=== PATIENT | male | born 1955 | race Caucasian/White ===

== ENCOUNTER 2017-02-07 15:16 | Emergency (ER) | payer MEDICARE, OTHER ==
[~2017-02-07] VITALS: Ht 185.4 cm; Wt 74.2 kg
[2017-02-07] MEDS ORDERED: ASPI-496 PO (16:19)
[2017-02-07] MEDS ORDERED: CLON0.1T PO (16:19)
[2017-02-07] MEDS ORDERED: ATOR40TA78 PO (16:19)
[2017-02-07] MEDS ORDERED: LISI5TAB7 PO (16:19)
[2017-02-07] MEDS ORDERED: ONDANSETRON 2MG/ML, 2ML IVPush ONE (16:30)
[2017-02-07] MEDS ORDERED: SODIUM CHLORIDE 0.9% 1,000ML IVBOLUS ONE (16:30)
[2017-02-07] MEDS ORDERED: ONDANSETRON 2MG/ML, 2ML ONE (16:35)
[2017-02-07 16:50] LABS: BASOPHILS # (AUTO) 0.08 x10^3/uL (0-0.1); BASOPHILS % (AUTO) 1 % (0-1); EOSINOPHILS # (AUTO) 0.08 x10^3/uL (0-0.4); EOSINOPHILS % (AUTO) 1 % (1-7); LYMPHOCYTES % (AUTO) 16 % (22-44); MD NO; MEAN CORPUSCULAR HEMOGLOBIN 31.7 pg (27.5-34.5); MEAN CORPUSCULAR HGB CONC 33.9 g/dL (33.2-36.2); MEAN CORPUSCULAR VOLUME 93.3 fL (81-97); MEAN PLATELET VOLUME 8.3 fL (7.4-10.4); MONOCYTES % (AUTO) 8 % (2-9); NEUTROPHILS # (AUTO) 8.79 x10^3/uL (1.8-6.8); NEUTROPHILS % (AUTO) 75 % (42-75); PLATELET COUNT 461 x10^3/uL (130-400); RED BLOOD COUNT 5.41 x10^6/uL (4.38-5.82); RED CELL DISTRIBUTION WIDTH 13.7 % (9.4-14.8)
[2017-02-07 17:02] LABS: ALANINE AMINOTRANSFERASE 29 U/L (12-78); ALBUMIN 4.3 g/dL (3.4-5.0); ANION GAP 13 mmol/L (5-15); CALCIUM 9.5 mg/dL (8.5-10.1); CHLORIDE 97 mmol/L (98-107); CREATININE 2.21 mg/dL (0.7-1.3)
[2017-02-07 17:03] LABS: MICROSCOPIC INDICATED
[2017-02-07 17:05] LABS: ALKALINE PHOSPHATASE 113 U/L (45-117); BILIRUBIN,TOTAL 3.4 mg/dL (0.2-1.0); TOTAL PROTEIN 8.6 g/dL (6.4-8.2)
[2017-02-07] MEDS ORDERED: POTASSIUM CHLORIDE 20 MEQ TAB.ER.PRT PO ONE (17:30)
[2017-02-07] MEDS ORDERED: POTASSIUM CHLORIDE 20 MEQ TAB.ER.PRT ONE (17:31)
[2017-02-07 17:50] LABS: CULTURE INDICATED? NO
[2017-02-07 19:39] VITALS: BP 146/100
== END 2017-02-07 19:47 | disposition home or self-care (01) ==
LOC: ED 19:06
DX: K52.9 Noninfective gastroenteritis and colitis, unspecified (principal); I10 Essential (primary) hypertension; R17 Unspecified jaundice
CPT/HCPCS: 36415; 74020; 76700; 80053; 81001; 83690; 85025; 96361; 96374; 99285; J2405; J7030

== ENCOUNTER 2017-06-04 10:38 | Inpatient (IN) | payer OTHER ==
[~2017-06-04] VITALS: Ht 185.4 cm; Wt 79.5 kg
[~2017-06-04 10:38] MED LIST: ASPI-496 PO; ATOR40TA78 PO; CLON0.1T PO; LISI5TAB7 PO
[2017-06-04 11:24] LABS: BASOPHILS # (AUTO) 0.02 x10^3/uL (0-0.1); BASOPHILS % (AUTO) 0 % (0-1); EOSINOPHILS # (AUTO) 0.01 x10^3/uL (0-0.4); EOSINOPHILS % (AUTO) 0 % (1-7); LYMPHOCYTES # (AUTO) 0.74 x10^3/uL (1-3.4); LYMPHOCYTES % (AUTO) 5 % (22-44); MD NO; MEAN CORPUSCULAR HEMOGLOBIN 30.1 pg (27.5-34.5); MEAN CORPUSCULAR HGB CONC 33.3 g/dL (33.2-36.2); MEAN CORPUSCULAR VOLUME 90.6 fL (81-97); MEAN PLATELET VOLUME 8.9 fL (7.4-10.4); MONOCYTES # (AUTO) 0.61 x10^3/uL (0.2-0.8); MONOCYTES % (AUTO) 4 % (2-9); NEUTROPHILS # (AUTO) 13.92 x10^3/uL (1.8-6.8); NEUTROPHILS % (AUTO) 91 % (42-75); PLATELET COUNT 411 x10^3/uL (130-400); RED BLOOD COUNT 5.73 x10^6/uL (4.38-5.82); RED CELL DISTRIBUTION WIDTH 14.4 % (9.4-14.8)
[2017-06-04] MEDS ORDERED: MORPHINE SULFATE 4 MG/ML, 1ML IVPush PRN (11:30)
[2017-06-04] MEDS ORDERED: PROMETHAZINE 25 MG/ML, 1ML IM ONE (11:30)
[2017-06-04] MEDS ORDERED: SODIUM CHLORIDE FLUSH 10ML SYR IVF ONE (11:30)
[2017-06-04] MEDS ORDERED: SODIUM CHLORIDE 0.9% 1,000ML IVBOLUS ONE (11:30)
[2017-06-04 11:37] LABS: ALANINE AMINOTRANSFERASE 28 U/L (12-78); ALBUMIN 5.5 g/dL (3.4-5.0); ANION GAP 13 mmol/L (5-15); CALCIUM 10.3 mg/dL (8.5-10.1); CHLORIDE 104 mmol/L (98-107); CREATININE 1.68 mg/dL (0.7-1.3)
[2017-06-04 11:39] LABS: ALKALINE PHOSPHATASE 101 U/L (45-117); BILIRUBIN,TOTAL 2.9 mg/dL (0.2-1.0); TOTAL PROTEIN 9.6 g/dL (6.4-8.2)
[2017-06-04] MEDS ORDERED: PROMETHAZINE 25 MG/ML, 1ML ONE (11:47)
[2017-06-04] MEDS ORDERED: LORazepam 2 MG/ML, 1ML ONE (12:15)
[2017-06-04] MEDS ORDERED: LORazepam 2 MG/ML, 1ML IVPush ONE (13:00)
[2017-06-04] MEDS ORDERED: LORazepam 2 MG/ML, 1ML IVPush PRN (14:30)
[2017-06-04] MEDS ORDERED: ONDANSETRON 2MG/ML, 2ML IVPush PRN (14:30)
[2017-06-04] MEDS ORDERED: BISACODYL 10 MG SUPP PR PRN (14:30)
[2017-06-04 14:58] LABS: HEMOGLOBIN A1C 5.7 % (4.2-6.3)
[2017-06-04] MEDS ORDERED: PANT40TA5 PO (16:00)
[2017-06-04] MEDS ORDERED: ASPI-650 PO (16:00)
[2017-06-04 16:08] VITALS: BP 209/104
[2017-06-04] MEDS: HEPARIN 5,000 UNITS/ML, 1ML SQ SCH ×2 (16:11→23:26)
[2017-06-04] MEDS: ONDANSETRON ODT 4 MG PO PRN ×2 (16:11→20:38)
[2017-06-04] MEDS ORDERED: POTASSIUM PHOSPHATE 44 MEQ in SODIUM CHLORIDE 0.9% 500 ML IV ONE (16:30)
[2017-06-04] MEDS: LISINOPRIL 10 MG TABLET PO SCH (16:53)
[2017-06-04] MEDS: SODIUM CHLORIDE 0.9% 1,000 ML IV SCH ×2 (16:54→20:58)
[2017-06-04] MEDS ORDERED: PHARMACY MAY ADJ FOR RENAL FX MC PRN (17:00)
[2017-06-04 18:07] VITALS: BP 200/99
[2017-06-04 18:08] VITALS: BP 191/73
[2017-06-04] MEDS: hydrALAzine 20 MG/ML, 1ML IV PRN (18:17)
[2017-06-04 18:40] VITALS: BP 205/89
[2017-06-04 19:02] VITALS: BP 177/97
[2017-06-04] MEDS ORDERED: LISINOPRIL 20 MG TABLET PO SCH (21:00)
[2017-06-04 21:55] LABS: AMPHETAMINE SCREEN, URINE Negative (Negative); BARBITURATE SCREEN, URINE Negative (Negative); BENZODIAZEPINE SCREEN, URINE Negative (Negative); CANNABINOID SCREEN, URINE Positive (Negative); COCAINE SCREEN, URINE Negative (Negative); METHADONE SCREEN, URINE Negative (Negative); OPIATE SCREEN, URINE Negative (Negative)
[2017-06-05] MEDS ORDERED: PROMETHAZINE 25 MG/ML, 1ML IM ONE
[2017-06-05 01:00] VITALS: BP 171/96
[2017-06-05 05:11] LABS: BASOPHILS # (AUTO) 0.05 x10^3/uL (0-0.1); BASOPHILS % (AUTO) 0 % (0-1); EOSINOPHILS % (AUTO) 0 % (1-7); LYMPHOCYTES % (AUTO) 8 % (22-44); MD NO; MEAN CORPUSCULAR HEMOGLOBIN 30.6 pg (27.5-34.5); MEAN CORPUSCULAR HGB CONC 33.5 g/dL (33.2-36.2); MEAN CORPUSCULAR VOLUME 91.3 fL (81-97); MEAN PLATELET VOLUME 9.1 fL (7.4-10.4); MONOCYTES # (AUTO) 0.97 x10^3/uL (0.2-0.8); MONOCYTES % (AUTO) 7 % (2-9); NEUTROPHILS % (AUTO) 84 % (42-75); PLATELET COUNT 372 x10^3/uL (130-400); RED BLOOD COUNT 5.02 x10^6/uL (4.38-5.82); RED CELL DISTRIBUTION WIDTH 14.5 % (9.4-14.8)
[2017-06-05 05:24] LABS: CHLORIDE 107 mmol/L (98-107)
[2017-06-05 05:29] LABS: MICROSCOPIC NOT IND
[2017-06-05 05:30] LABS: ALANINE AMINOTRANSFERASE 23 U/L (12-78); ALBUMIN 4.1 g/dL (3.4-5.0); ALKALINE PHOSPHATASE 81 U/L (45-117); ANION GAP 12 mmol/L (5-15); BILIRUBIN,TOTAL 2.6 mg/dL (0.2-1.0); CALCIUM 8.6 mg/dL (8.5-10.1); CREATININE 1.17 mg/dL (0.7-1.3); TOTAL PROTEIN 7.6 g/dL (6.4-8.2)
[2017-06-05 05:33] LABS: CULTURE INDICATED? NO
[2017-06-05 06:55] VITALS: BP 159/87
[2017-06-05] MEDS: SODIUM CHLORIDE 0.9% 1,000 ML IV SCH ×2 (07:30→22:11)
[2017-06-05] MEDS ORDERED: PANTOPRAZOLE 40 MG IV IVPush SCH (09:00)
[2017-06-05] MEDS: ASPIRIN 325 MG TABLET EC PO SCH (09:18)
[2017-06-05] MEDS: HEPARIN 5,000 UNITS/ML, 1ML SQ SCH ×2 (09:18→17:29)
[2017-06-05] MEDS: LISINOPRIL 10 MG TABLET PO SCH ×2 (09:18→22:11)
[2017-06-05] MEDS: ONDANSETRON ODT 4 MG PO PRN ×2 (09:18→18:08)
[2017-06-05] MEDS: SENNA/DOCUSATE TABLET PO SCH (09:18)
[2017-06-05 12:42] VITALS: BP 147/71
[2017-06-05 18:36] VITALS: BP_SYST 192; BP_SYST 199; BP_DIAS 106; BP_DIAS 108
[2017-06-05] MEDS: hydrALAzine 20 MG/ML, 1ML IV PRN (19:37)
[2017-06-05] MEDS: MORPHINE SULFATE 4 MG/ML, 1ML IVPush PRN (19:52)
[2017-06-05 20:30] VITALS: BP 177/96
[2017-06-06 00:22] VITALS: BP 165/104
[2017-06-06] MEDS: HEPARIN 5,000 UNITS/ML, 1ML SQ SCH ×3 (00:29→16:11)
[2017-06-06] MEDS: MORPHINE SULFATE 4 MG/ML, 1ML IVPush PRN ×2 (00:40→20:31)
[2017-06-06 05:03] LABS: ALBUMIN 3.7 g/dL (3.4-5.0); ANION GAP 10 mmol/L (5-15); CALCIUM 8.5 mg/dL (8.5-10.1); CHLORIDE 107 mmol/L (98-107)
[2017-06-06 05:04] LABS: BASOPHILS # (AUTO) 0.07 x10^3/uL (0-0.1); BASOPHILS % (AUTO) 1 % (0-1); EOSINOPHILS # (AUTO) 0.01 x10^3/uL (0-0.4); EOSINOPHILS % (AUTO) 0 % (1-7); LYMPHOCYTES # (AUTO) 1.12 x10^3/uL (1-3.4); LYMPHOCYTES % (AUTO) 12 % (22-44); MD NO; MEAN CORPUSCULAR HEMOGLOBIN 30.3 pg (27.5-34.5); MEAN CORPUSCULAR HGB CONC 33.3 g/dL (33.2-36.2); MEAN CORPUSCULAR VOLUME 91.2 fL (81-97); MEAN PLATELET VOLUME 9.2 fL (7.4-10.4); MONOCYTES # (AUTO) 0.74 x10^3/uL (0.2-0.8); MONOCYTES % (AUTO) 8 % (2-9); NEUTROPHILS # (AUTO) 7.35 x10^3/uL (1.8-6.8); NEUTROPHILS % (AUTO) 79 % (42-75); PLATELET COUNT 306 x10^3/uL (130-400); RED BLOOD COUNT 4.94 x10^6/uL (4.38-5.82); RED CELL DISTRIBUTION WIDTH 14.1 % (9.4-14.8)
[2017-06-06 05:08] LABS: ALANINE AMINOTRANSFERASE 20 U/L (12-78); ALKALINE PHOSPHATASE 72 U/L (45-117); BILIRUBIN,TOTAL 2.3 mg/dL (0.2-1.0); CREATININE 1.05 mg/dL (0.7-1.3)
[2017-06-06] MEDS: SODIUM CHLORIDE 0.9% 1,000 ML IV SCH (06:22)
[2017-06-06 07:49] VITALS: BP 111/76
[2017-06-06] MEDS: ASPIRIN 325 MG TABLET EC PO SCH (08:12)
[2017-06-06] MEDS: ONDANSETRON ODT 4 MG PO PRN ×3 (08:12→20:31)
[2017-06-06] MEDS: LISINOPRIL 10 MG TABLET PO SCH ×2 (08:13→20:13)
[2017-06-06] MEDS: SENNA/DOCUSATE TABLET PO SCH (08:17)
[2017-06-06] MEDS: PANTOPROZOLE 40MG TABLET PO SCH (08:17)
[2017-06-06] MEDS ORDERED: PROMETHAZINE 12.5 MG SUPP PR PRN (10:00)
[2017-06-06 14:05] VITALS: BP 119/79
[2017-06-06] MEDS ORDERED: NS + 20MEQ KCL 1,000 ML IV SCH (14:18)
[2017-06-06 19:01] VITALS: BP 194/105
[2017-06-06] MEDS: hydrALAzine 20 MG/ML, 1ML IV PRN (20:14)
[2017-06-06] MEDS: NS + 20MEQ KCL 1,000 ML IV SCH (20:19)
[2017-06-06 22:28] VITALS: BP 156/94
[2017-06-07] MEDS: HEPARIN 5,000 UNITS/ML, 1ML SQ SCH ×2 (01:16→07:59)
[2017-06-07 01:51] VITALS: BP 115/70
[2017-06-07] MEDS: NS + 20MEQ KCL 1,000 ML IV SCH ×2 (04:33→12:00)
[2017-06-07 06:47] LABS: ALANINE AMINOTRANSFERASE 17 U/L (12-78); ALBUMIN 3.2 g/dL (3.4-5.0); ANION GAP 9 mmol/L (5-15); CALCIUM 7.6 mg/dL (8.5-10.1); CHLORIDE 108 mmol/L (98-107)
[2017-06-07 06:49] LABS: ALKALINE PHOSPHATASE 66 U/L (45-117); BILIRUBIN,TOTAL 1.9 mg/dL (0.2-1.0); TOTAL PROTEIN 6.1 g/dL (6.4-8.2)
[2017-06-07 07:20] VITALS: BP 117/78
[2017-06-07] MEDS: PANTOPROZOLE 40MG TABLET PO SCH (07:58)
[2017-06-07] MEDS: LISINOPRIL 10 MG TABLET PO SCH (07:58)
[2017-06-07] MEDS: SENNA/DOCUSATE TABLET PO SCH (07:58)
[2017-06-07] MEDS: ASPIRIN 325 MG TABLET EC PO SCH (07:58)
== END 2017-06-07 14:29 | disposition home or self-care (01) | DRG 102 ==
LOC: ED 13:00 → EDIP 13:01 → ED 13:17 → 3NE 15:40 → 4EST 18:51
PROVIDERS: ADMIT Internal Medicine Pulmonary Disease; ATTEND Internal Medicine Pulmonary Disease
DX: G43.A0 Cyclical vomiting, in migraine, not intractable (principal); N17.0 Acute kidney failure with tubular necrosis; D75.1 Secondary polycythemia; E83.39 Other disorders of phosphorus metabolism; E83.52 Hypercalcemia; E86.0 Dehydration; F12.188 Cannabis abuse with other cannabis-induced disorder; K59.00 Constipation, unspecified; D47.3 Essential (hemorrhagic) thrombocythemia; E74.39 Other disorders of intestinal carbohydrate absorption; R33.9 Retention of urine, unspecified; E78.5 Hyperlipidemia, unspecified; E87.6 Hypokalemia; I10 Essential (primary) hypertension; Z80.1 Family history of malignant neoplasm of trachea, bronchus and lung; Z82.49 Family history of ischemic heart disease and other diseases of the circulatory system; Z83.3 Family history of diabetes mellitus; Z86.73 Personal history of transient ischemic attack (TIA), and cerebral infarction without residual deficits; T40.7X5A Adverse effect of cannabis (derivatives), initial encounter
CPT/HCPCS: 36415; 74021; 76700; 80053; 80307; 81003; 83036; 83690; 83735; 84100; 85025; 93005; 96361; 96372; 96374; J1644; J2550; J3480; Q0162; C9113; J0360; J2060; J7030; J7040

== ENCOUNTER 2017-12-09 10:42 | Inpatient (IN) | payer OTHER ==
[~2017-12-09] VITALS: Ht 185.4 cm; Wt 74.0 kg
[~2017-12-09 10:42] MED LIST changes: +ASPI-650 PO; +PANT40TA5 PO
[2017-12-09] MEDS ORDERED: MORPHINE SULFATE 4 MG/ML, 1ML ONE (11:43)
[2017-12-09] MEDS ORDERED: ONDANSETRON 2MG/ML, 2ML ONE (11:43)
[2017-12-09] MEDS ORDERED: ONDANSETRON 2MG/ML, 2ML IVPush ONE ×2 (12:00→14:30)
[2017-12-09] MEDS ORDERED: SODIUM CHLORIDE FLUSH 10ML SYR IVF ONE (12:00)
[2017-12-09] MEDS ORDERED: SODIUM CHLORIDE 0.9% 1,000ML IVBOLUS ONE (12:00)
[2017-12-09] MEDS ORDERED: MORPHINE SULFATE 4 MG/ML, 1ML IVPush PRN (12:00)
[2017-12-09 12:04] LABS: BASOPHILS # (AUTO) 0.01 x10^3/uL (0-0.1); BASOPHILS % (AUTO) 0 % (0-1); EOSINOPHILS # (AUTO) 0.03 x10^3/uL (0-0.4); EOSINOPHILS % (AUTO) 0 % (1-7); LYMPHOCYTES # (AUTO) 1.82 x10^3/uL (1-3.4); LYMPHOCYTES % (AUTO) 15 % (22-44); MD NO; MEAN CORPUSCULAR HEMOGLOBIN 30.7 pg (27.5-34.5); MEAN CORPUSCULAR HGB CONC 33.8 g/dL (33.2-36.2); MEAN CORPUSCULAR VOLUME 90.8 fL (81-97); MEAN PLATELET VOLUME 9.2 fL (7.4-10.4); MONOCYTES # (AUTO) 1.01 x10^3/uL (0.2-0.8); MONOCYTES % (AUTO) 8 % (2-9); NEUTROPHILS # (AUTO) 9.35 x10^3/uL (1.8-6.8); NEUTROPHILS % (AUTO) 77 % (42-75); PLATELET COUNT 455 x10^3/uL (130-400); RED BLOOD COUNT 6.12 x10^6/uL (4.38-5.82); RED CELL DISTRIBUTION WIDTH 13.3 % (9.4-14.8)
[2017-12-09 12:12] LABS: ANION GAP 17 mmol/L (5-15); CALCIUM 9.5 mg/dL (8.5-10.1); CHLORIDE 91 mmol/L (98-107)
[2017-12-09 12:15] LABS: ALANINE AMINOTRANSFERASE 29 U/L (12-78); ALKALINE PHOSPHATASE 112 U/L (45-117); CREATININE 3.75 mg/dL (0.7-1.3); TOTAL PROTEIN 9.6 g/dL (6.4-8.2)
[2017-12-09] MEDS ORDERED: POTASSIUM CHLORIDE 20 MEQ TAB.ER.PRT ONE (13:54)
[2017-12-09] MEDS ORDERED: POTASSIUM CHLORIDE 20 MEQ TAB.ER.PRT PO ONE (14:00)
[2017-12-09 14:21] VITALS: BP 171/101
[2017-12-09] MEDS ORDERED: LORazepam 2 MG/ML, 1ML IVPush PRN (16:00)
[2017-12-09] MEDS ORDERED: PROMETHAZINE 25 MG/ML, 1ML IM PRN (16:00)
[2017-12-09] MEDS ORDERED: LABETALOL 5MG/ML, 20ML IVPush PRN (16:00)
[2017-12-09] MEDS: HEPARIN 5,000 UNITS/ML, 1ML SQ SCH (16:00)
[2017-12-09] MEDS: NS + 40MEQ KCL 1,000 ML IV SCH ×2 (16:42→22:43)
[2017-12-09] MEDS: morphine SULFATE 10 MG/ML, 1ML IVPush PRN ×2 (16:50→19:52)
[2017-12-09 19:35] VITALS: BP 179/112
[2017-12-09] MEDS: ONDANSETRON 2MG/ML, 2ML IVPush PRN (19:52)
[2017-12-09 20:40] VITALS: BP 146/72
[2017-12-10 00:18] VITALS: BP 137/71
[2017-12-10] MEDS: morphine SULFATE 10 MG/ML, 1ML IVPush PRN ×4 (01:48→12:57)
[2017-12-10] MEDS: HEPARIN 5,000 UNITS/ML, 1ML SQ SCH ×3 (03:33→20:07)
[2017-12-10] MEDS: ONDANSETRON 2MG/ML, 2ML IVPush PRN (04:10)
[2017-12-10 05:03] LABS: BASOPHILS # (AUTO) 0.05 x10^3/uL (0-0.1); BASOPHILS % (AUTO) 1 % (0-1); EOSINOPHILS # (AUTO) 0.05 x10^3/uL (0-0.4); EOSINOPHILS % (AUTO) 1 % (1-7); LYMPHOCYTES # (AUTO) 1.63 x10^3/uL (1-3.4); LYMPHOCYTES % (AUTO) 18 % (22-44); MD NO; MEAN CORPUSCULAR HEMOGLOBIN 30.9 pg (27.5-34.5); MEAN CORPUSCULAR HGB CONC 33.9 g/dL (33.2-36.2); MEAN CORPUSCULAR VOLUME 91.1 fL (81-97); MEAN PLATELET VOLUME 8.9 fL (7.4-10.4); MONOCYTES % (AUTO) 11 % (2-9); NEUTROPHILS # (AUTO) 6.27 x10^3/uL (1.8-6.8); NEUTROPHILS % (AUTO) 70 % (42-75); PLATELET COUNT 317 x10^3/uL (130-400); RED BLOOD COUNT 5.36 x10^6/uL (4.38-5.82); RED CELL DISTRIBUTION WIDTH 13.6 % (9.4-14.8)
[2017-12-10 05:12] LABS: ALBUMIN 3.8 g/dL (3.4-5.0); ANION GAP 9 mmol/L (5-15); CALCIUM 8.4 mg/dL (8.5-10.1); CHLORIDE 108 mmol/L (98-107)
[2017-12-10 05:17] LABS: ALANINE AMINOTRANSFERASE 23 U/L (12-78); ALKALINE PHOSPHATASE 83 U/L (45-117); BILIRUBIN,TOTAL 3.1 mg/dL (0.2-1.0); TOTAL PROTEIN 7.2 g/dL (6.4-8.2)
[2017-12-10] MEDS: NS + 40MEQ KCL 1,000 ML IV SCH (05:38)
[2017-12-10 07:10] VITALS: BP 139/86
[2017-12-10] MEDS: PANTOPRAZOLE 40 MG IV IVPush SCH (08:00)
[2017-12-10 13:34] VITALS: BP 151/89
[2017-12-10] MEDS: D5%-0.45% NACL 1,000 ML IV SCH (16:27)
[2017-12-10 19:19] VITALS: BP 153/87
[2017-12-11] MEDS: D5%-0.45% NACL 1,000 ML IV SCH ×2 (00:07→08:04)
[2017-12-11 03:54] VITALS: BP 129/71
[2017-12-11] MEDS: HEPARIN 5,000 UNITS/ML, 1ML SQ SCH (04:41)
[2017-12-11 05:35] LABS: ANION GAP 8 mmol/L (5-15); BASOPHILS # (AUTO) 0.04 x10^3/uL (0-0.1); BASOPHILS % (AUTO) 1 % (0-1); CALCIUM 7.7 mg/dL (8.5-10.1); CHLORIDE 110 mmol/L (98-107); EOSINOPHILS # (AUTO) 0.17 x10^3/uL (0-0.4); EOSINOPHILS % (AUTO) 3 % (1-7); LYMPHOCYTES # (AUTO) 1.32 x10^3/uL (1-3.4); LYMPHOCYTES % (AUTO) 25 % (22-44); MD NO; MEAN CORPUSCULAR HEMOGLOBIN 30.6 pg (27.5-34.5); MEAN CORPUSCULAR HGB CONC 33.6 g/dL (33.2-36.2); MEAN CORPUSCULAR VOLUME 90.9 fL (81-97); MEAN PLATELET VOLUME 8.5 fL (7.4-10.4); MONOCYTES # (AUTO) 0.48 x10^3/uL (0.2-0.8); MONOCYTES % (AUTO) 9 % (2-9); NEUTROPHILS # (AUTO) 3.35 x10^3/uL (1.8-6.8); NEUTROPHILS % (AUTO) 63 % (42-75); PLATELET COUNT 278 x10^3/uL (130-400); RED BLOOD COUNT 4.55 x10^6/uL (4.38-5.82); RED CELL DISTRIBUTION WIDTH 13.7 % (9.4-14.8)
[2017-12-11 05:37] LABS: CREATININE 1.11 mg/dL (0.7-1.3)
[2017-12-11 07:15] VITALS: BP 111/66
[2017-12-11] MEDS: PANTOPRAZOLE 40 MG IV IVPush SCH (08:04)
[2017-12-11 08:30] VITALS: BP 147/81
[2017-12-11] MEDS ORDERED: TRAM50TA2 PO (09:54)
== END 2017-12-11 11:43 | disposition home or self-care (01) | DRG 391 ==
LOC: ED 13:22 → EDIP 13:32 → 3NE 14:35
PROVIDERS: ADMIT Family Medicine; ATTEND Family Medicine
DX: K52.9 Noninfective gastroenteritis and colitis, unspecified (principal); N17.0 Acute kidney failure with tubular necrosis; E87.1 Hypo-osmolality and hyponatremia; D68.9 Coagulation defect, unspecified; E80.4 Gilbert syndrome; E86.0 Dehydration; E87.6 Hypokalemia; K44.9 Diaphragmatic hernia without obstruction or gangrene; N20.0 Calculus of kidney; F12.90 Cannabis use, unspecified, uncomplicated; D47.3 Essential (hemorrhagic) thrombocythemia; I10 Essential (primary) hypertension; E78.5 Hyperlipidemia, unspecified; Z86.73 Personal history of transient ischemic attack (TIA), and cerebral infarction without residual deficits; Z82.49 Family history of ischemic heart disease and other diseases of the circulatory system; Z87.442 Personal history of urinary calculi; Z83.3 Family history of diabetes mellitus
CPT/HCPCS: 36415; 74183; 76700; 76770; 80048; 80053; 83605; 83690; 83735; 84100; 85025; 93005; 96361; 96374; 96375; G0378; J2405; C9113; J2270; J3480; J7030

== ENCOUNTER 2020-08-03 11:39 | Inpatient (IN) | payer OTHER ==
[~2020-08-03] VITALS: Ht 185.4 cm; Wt 80.0 kg
[~2020-08-03 11:39] MED LIST changes: +ASPI-1026 PO; -ASPI-650 PO; -CLON0.1T PO; +CLON0.1T22 PO; -PANT40TA5 PO; +PANT40TA6 PO; +TRAM50TA2 PO
--- NOTE | 2020-08-03 11:39 | NUR ---
PATIENT NIL X1.
--- NOTE | 2020-08-03 12:34 | NUR ---
PT TO ROOM 24 W/ C/O ABD PAIN THROUGHOUT AND RLQ ABD PAIN. PT W/ N/V AND CURRENTLY DRY HEAVES. PT STATES STARTED YESTERDAY. DENIES DIARRHEA. PT RESTING ON GURNEY. STATES ABD PAIN THROUGHOUT ON PALPATION CONCENTRATED ON RLQ. PT RESTING ON GURNEY. MONITORS APPLIED. WARM BLANKET PROVIDED. CALL LIGHT IN REACH. PIV INITIATED.
[2020-08-03] MEDS ORDERED: ONDANSETRON 2MG/ML, 2ML IVPush ONE (13:00)
[2020-08-03] MEDS ORDERED: HYDROmorphone 1 MG/ML, 1ML INJ IV ONE (13:00)
[2020-08-03] MEDS ORDERED: SODIUM CHLORIDE 0.9% 1,000ML IVBOLUS ONE (13:00)
[2020-08-03] MEDS ORDERED: SODIUM CHLORIDE FLUSH 10ML SYR IVF ONE (13:00)
[2020-08-03] MEDS ORDERED: ONDANSETRON 2MG/ML, 2ML ONE ×2 (13:01→18:13)
[2020-08-03] MEDS ORDERED: HYDROmorphone 1 MG/ML, 1ML INJ ONE (13:01)
[2020-08-03 13:17] LABS: BASOPHILS % (AUTO) 1 % (0-1); EOSINOPHILS % (AUTO) 0 % (1-7); LYMPHOCYTES % (AUTO) 7 % (22-44); MEAN CORPUSCULAR HEMOGLOBIN 31.5 pg (27.5-34.5); MEAN CORPUSCULAR HGB CONC 33.3 g/dL (33.2-36.2); MEAN PLATELET VOLUME 8.4 fL (7.4-10.4); MONOCYTES % (AUTO) 6 % (2-9); NEUTROPHILS % (AUTO) 86 % (42-75); PLATELET COUNT 388 x10^3/uL (130-400); RED CELL DISTRIBUTION WIDTH 14.4 % (9.4-14.8)
[2020-08-03 13:21] LABS: MICROSCOPIC INDICATED
[2020-08-03 13:28] LABS: ALBUMIN 4.2 g/dL (3.4-5.0); ANION GAP 9 mmol/L (5-15); CALCIUM 8.9 mg/dL (8.5-10.1); CHLORIDE 105 mmol/L (98-107)
[2020-08-03 13:32] LABS: ALANINE AMINOTRANSFERASE 30 U/L (12-78); ALKALINE PHOSPHATASE 115 U/L (45-117); BILIRUBIN,TOTAL 3.2 mg/dL (0.2-1.0); CREATININE 1.56 mg/dL (0.7-1.3)
--- NOTE | 2020-08-03 13:50 | NUR ---
PT RESTING ON GURNEY. NADN. OCONNOR.
--- NOTE | 2020-08-03 14:20 | NUR ---
CT DELAY- CODE NEURO JUST CALLED AND ONE ROOM DOING BIOPSY
--- NOTE | 2020-08-03 14:46 | NUR ---
PT TAKEN TO CT IN STABLE CONDITION. NADN. VSS.
[2020-08-03] MEDS ORDERED: OMNIPAQUE 350 MG/ML, 100ML BOTTLE ONE (14:55)
--- NOTE | 2020-08-03 15:53 | NUR ---
BREAK RN: PT CALMLY SLEEPING ON GURNEY, NAD WITH EQUAL CHEST RISE/FALL, NO NEEDS AT THIS TIME, AT BS, CALL LIGHT WITHIN REACH.
[2020-08-03] MEDS ORDERED: ENALAPRILAT 1.25 MG/ML, 2ML IV ONE (16:30)
[2020-08-03] MEDS ORDERED: ENALAPRILAT 1.25 MG/ML, 1ML ONE (16:33)
--- NOTE | 2020-08-03 16:38 | NUR ---
PT AND FAMILY AWARE OF POC FOR ADMISSION AND ARE AGREEABLE.
--- NOTE | 2020-08-03 17:30 | NUR ---
PT RESTING ON GURNEY. NADN. OCONNOR.
[2020-08-03] MEDS: ONDANSETRON 2MG/ML, 2ML IVPush PRN (18:00)
--- NOTE | 2020-08-03 18:27 | NUR ---
[facility] STUDENT AT BEDSIDE FOR ADMISSION EVAL.
[2020-08-03] MEDS ORDERED: BISACODYL 10 MG SUPP PR PRN (19:00)
[2020-08-03] MEDS ORDERED: ACETAMINOPHEN 325 MG TABLET PO PRN (19:00)
[2020-08-03] MEDS ORDERED: morphine SULFATE 10 MG/ML, 1ML IVPush PRN (19:00)
[2020-08-03] MEDS ORDERED: POLYETHYLENE GLYCOL 17 GM PACKET PO PRN (19:00)
--- NOTE | 2020-08-03 19:25 | NUR ---
PT RESTING ON GURNEY. NADN. OCONNOR.
[2020-08-03 20:24] VITALS: BP 172/92
[2020-08-03] MEDS: ATORVASTATIN 40 MG TABLET PO SCH (20:30)
[2020-08-03] MEDS: HEPARIN 5,000 UNITS/ML, 1ML SQ SCH (20:30)
[2020-08-03] MEDS: SODIUM CHLORIDE 0.9% 1,000 ML IV SCH (20:31)
[2020-08-03] MEDS: hydrALAzine 20 MG/ML, 1ML IV PRN (23:27)
[2020-08-04] VITALS (7 sets, daily range): BP systolic 155–193; BP diastolic 87–104
[2020-08-04] MEDS ORDERED: ENALAPRILAT 1.25 MG/ML, 2ML IV PRN (01:30)
[2020-08-04] MEDS ORDERED: ENALAPRILAT 1.25 MG/ML, 1ML ONE ×2 (01:31→01:36)
[2020-08-04] MEDS: ONDANSETRON 2MG/ML, 2ML IVPush PRN (01:52)
[2020-08-04] MEDS: HEPARIN 5,000 UNITS/ML, 1ML SQ SCH ×3 (03:00→21:08)
[2020-08-04 04:35] LABS: BASOPHILS % (AUTO) 1 % (0-1); EOSINOPHILS % (AUTO) 0 % (1-7); LYMPHOCYTES % (AUTO) 12 % (22-44); MEAN CORPUSCULAR HEMOGLOBIN 31.6 pg (27.5-34.5); MEAN CORPUSCULAR HGB CONC 33.7 g/dL (33.2-36.2); MEAN PLATELET VOLUME 8.5 fL (7.4-10.4); MONOCYTES % (AUTO) 9 % (2-9); NEUTROPHILS % (AUTO) 78 % (42-75); PLATELET COUNT 321 x10^3/uL (130-400); RED BLOOD COUNT 5.13 x10^6/uL (4.38-5.82); RED CELL DISTRIBUTION WIDTH 14.4 % (9.4-14.8)
[2020-08-04 04:47] LABS: ANION GAP 7 mmol/L (5-15); CALCIUM 8.1 mg/dL (8.5-10.1); CHLORIDE 107 mmol/L (98-107)
[2020-08-04 04:49] LABS: CREATININE 1.11 mg/dL (0.7-1.3)
[2020-08-04] MEDS: hydrALAzine 20 MG/ML, 1ML IV PRN (06:30)
[2020-08-04] MEDS: SODIUM CHLORIDE 0.9% 1,000 ML IV SCH (06:30)
[2020-08-04] MEDS: ASPIRIN 325 MG TABLET EC PO SCH (08:30)
[2020-08-04] MEDS: PANTOPRAZOLE 40MG TABLET PO SCH (08:30)
[2020-08-04] MEDS: SENNA/DOCUSATE TABLET PO SCH (08:31)
[2020-08-04] MEDS: AMLODIPINE 5 MG TABLET PO SCH (16:20)
[2020-08-04] MEDS ORDERED: POTASSIUM CHLORIDE 40 MEQ in SODIUM CHLORIDE 0.9% 500 ML IV ONE (16:30)
[2020-08-04] MEDS ORDERED: SODIUM CHLORIDE 0.9% 1,000 ML IV SCH (19:00)
[2020-08-04] MEDS: CIPROFLOXACIN 250 MG TABLET PO SCH (21:00)
[2020-08-04] MEDS ORDERED: CIPROFLOXACIN 500 MG TABLET ONE (21:01)
[2020-08-04] MEDS: ATORVASTATIN 40 MG TABLET PO SCH (21:06)
[2020-08-05 01:37] VITALS: BP 111/72
[2020-08-05] MEDS: HEPARIN 5,000 UNITS/ML, 1ML SQ SCH ×3 (03:53→18:47)
[2020-08-05 05:59] LABS: BASOPHILS % (AUTO) 1 % (0-1); EOSINOPHILS % (AUTO) 3 % (1-7); LYMPHOCYTES % (AUTO) 22 % (22-44); MEAN CORPUSCULAR HEMOGLOBIN 31.9 pg (27.5-34.5); MEAN CORPUSCULAR HGB CONC 34.3 g/dL (33.2-36.2); MEAN PLATELET VOLUME 8.4 fL (7.4-10.4); MONOCYTES % (AUTO) 10 % (2-9); NEUTROPHILS % (AUTO) 64 % (42-75); PLATELET COUNT 259 x10^3/uL (130-400); RED BLOOD COUNT 5.02 x10^6/uL (4.38-5.82); RED CELL DISTRIBUTION WIDTH 13.8 % (9.4-14.8)
[2020-08-05 06:15] LABS: CHLORIDE 110 mmol/L (98-107)
[2020-08-05 06:22] LABS: ANION GAP 5 mmol/L (5-15)
[2020-08-05 07:26] VITALS: BP 124/77
[2020-08-05] MEDS: AMLODIPINE 5 MG TABLET PO SCH (08:49)
[2020-08-05] MEDS: CIPROFLOXACIN 250 MG TABLET PO SCH (08:49)
[2020-08-05] MEDS: PANTOPRAZOLE 40MG TABLET PO SCH (08:49)
[2020-08-05] MEDS: SENNA/DOCUSATE TABLET PO SCH (08:49)
[2020-08-05] MEDS: ASPIRIN 325 MG TABLET EC PO SCH (08:49)
[2020-08-05] MEDS: ONDANSETRON 2MG/ML, 2ML IVPush PRN ×2 (11:17→16:26)
[2020-08-05] MEDS ORDERED: CIPR250T27 PO ×2 (11:23)
[2020-08-05] MEDS ORDERED: HYDR-3343 PO ×2 (11:23)
[2020-08-05] MEDS ORDERED: AMLO-150 PO ×2 (11:23)
[2020-08-05] MEDS ORDERED: ACETAMINOPHEN 500 MG TABLET PO PRN (11:30)
[2020-08-05 13:41] VITALS: BP 177/91
[2020-08-05] MEDS ORDERED: GADOTERATE 7.5 MMOL/15ML SYR ONE (15:22)
[2020-08-05] MEDS ORDERED: MORPHINE SULFATE 4 MG/ML, 1ML IVPush PRN (16:30)
[2020-08-05] MEDS ORDERED: ONDANSETRON 4 MG TABLET PO PRN (16:30)
[2020-08-05] MEDS ORDERED: OXYcodone IR 5MG TABLET PO PRN (16:30)
[2020-08-05] MEDS ORDERED: BISACODYL 10 MG SUPP PR PRN (18:00)
[2020-08-05] MEDS ORDERED: CEFTRIAXONE 1,000 MG in DEXTROSE 5% 50 ML IVPB SCH (18:00)
[2020-08-05] MEDS: PANTOPRAZOLE 40 MG IV IVPush SCH (18:34)
[2020-08-05] MEDS: POLYETHYLENE GLYCOL 17 GM PACKET NG SCH (18:46)
[2020-08-05] MEDS: POTASSIUM CHLORIDE 10 MEQ in D5%-LACTATED RINGERS 1,000 ML IV SCH (18:47)
[2020-08-05 21:53] VITALS: BP 122/77
[2020-08-05] MEDS: ATORVASTATIN 40 MG TABLET PO SCH (21:55)
[2020-08-06 02:28] VITALS: BP 143/88
[2020-08-06] MEDS: POTASSIUM CHLORIDE 10 MEQ in D5%-LACTATED RINGERS 1,000 ML IV SCH (02:32)
[2020-08-06 05:16] LABS: BASOPHILS % (AUTO) 2 % (0-1); EOSINOPHILS % (AUTO) 4 % (1-7); LYMPHOCYTES % (AUTO) 26 % (22-44); MEAN CORPUSCULAR HEMOGLOBIN 31.9 pg (27.5-34.5); MEAN CORPUSCULAR HGB CONC 34.9 g/dL (33.2-36.2); MEAN PLATELET VOLUME 8.6 fL (7.4-10.4); MONOCYTES % (AUTO) 11 % (2-9); NEUTROPHILS % (AUTO) 58 % (42-75); PLATELET COUNT 260 x10^3/uL (130-400); RED BLOOD COUNT 4.91 x10^6/uL (4.38-5.82); RED CELL DISTRIBUTION WIDTH 13.8 % (9.4-14.8)
[2020-08-06 05:20] LABS: ALANINE AMINOTRANSFERASE 21 U/L (12-78); ALBUMIN 3.1 g/dL (3.4-5.0); ANION GAP 7 mmol/L (5-15); CALCIUM 8.1 mg/dL (8.5-10.1); CHLORIDE 105 mmol/L (98-107); CREATININE 1.19 mg/dL (0.7-1.3)
[2020-08-06 05:23] LABS: ALKALINE PHOSPHATASE 88 U/L (45-117); BILIRUBIN,TOTAL 2.8 mg/dL (0.2-1.0); TOTAL PROTEIN 6.2 g/dL (6.4-8.2)
[2020-08-06] MEDS: PANTOPRAZOLE 40 MG IV IVPush SCH (05:48)
[2020-08-06] MEDS: HEPARIN 5,000 UNITS/ML, 1ML SQ SCH (05:49)
[2020-08-06] MEDS ORDERED: POTASSIUM CHLORIDE 40 MEQ in SODIUM CHLORIDE 0.9% 500 ML IV ONE (07:30)
[2020-08-06 08:42] VITALS: BP 125/79
[2020-08-06] MEDS: POLYETHYLENE GLYCOL 17 GM PACKET NG SCH ×2 (09:00→10:36)
[2020-08-06] MEDS: SENNA/DOCUSATE TABLET PO SCH (09:00)
[2020-08-06] MEDS ORDERED: ONDA-89 PO (10:26)
[2020-08-06] MEDS ORDERED: LISI-170 PO (10:29)
[2020-08-06] MEDS: AMLODIPINE 5 MG TABLET PO SCH (10:36)
[2020-08-06] MEDS: ASPIRIN 325 MG TABLET EC PO SCH (10:37)
== END 2020-08-06 12:32 | disposition home or self-care (01) | DRG 391 ==
LOC: ED 15:09 → EDIP 17:16 → INTOOBSV 17:16 → 4EST 20:02 → OBSVTOIN 08-04 11:10 → DCLOUNGE 08-06 12:26
PROVIDERS: ADMIT Hospitalist; ATTEND Internal Medicine
DX: K29.70 Gastritis, unspecified, without bleeding (principal); N17.0 Acute kidney failure with tubular necrosis; E87.2 Acidosis; I69.392 Facial weakness following cerebral infarction; I16.0 Hypertensive urgency; D72.829 Elevated white blood cell count, unspecified; E80.4 Gilbert syndrome; E86.0 Dehydration; E87.6 Hypokalemia; I69.398 Other sequelae of cerebral infarction; F12.90 Cannabis use, unspecified, uncomplicated; I10 Essential (primary) hypertension; M48.00 Spinal stenosis, site unspecified; K21.9 Gastro-esophageal reflux disease without esophagitis; M19.90 Unspecified osteoarthritis, unspecified site; Z79.899 Other long term (current) drug therapy; Z85.828 Personal history of other malignant neoplasm of skin; Z80.1 Family history of malignant neoplasm of trachea, bronchus and lung; Z83.3 Family history of diabetes mellitus; Z87.442 Personal history of urinary calculi
CPT/HCPCS: 36415; 70450; 72158; 74177; 76700; 80048; 80053; 81001; 82550; 83605; 83690; 83735; 84100; 85025; 87086; 93005; 96374; 96375; G0378; J0696; J1170; J1644; J2405; J3480; Q9967; A9575; C9113; J0360; J2270; J7030; J7040; J7121